=== PATIENT | female | born 1950 | race Caucasian/White ===

== ENCOUNTER 2016-04-23 14:50 | Emergency (ER) | payer MEDICARE ==
[~2016-04-23] VITALS: Ht 165.1 cm; Wt 99.8 kg
[2016-04-23 14:52] VITALS: BP 154/94; PULSE 74; RESP 16; TEMP 98.5; O2SAT 96
--- NOTE | 2016-04-23 14:52 | NUR ---
Patient triaged and placed in waiting room. VSS and patient appears in no acute distress at this time. Accompanied by daughter, awaiting available bed, and MD notified of need for MSE.
[2016-04-23] MEDS ORDERED: PIOG45TA PO (15:31)
[2016-04-23] MEDS ORDERED: PHEN-726 PO (15:31)
[2016-04-23] MEDS ORDERED: IBUP-1480 PO (15:31)
[2016-04-23] MEDS ORDERED: CEPH250C PO (15:31)
[2016-04-23] MEDS ORDERED: METF1000 PO (15:31)
[2016-04-23] MEDS ORDERED: CARV25TA55 PO (15:31)
--- NOTE | 2016-04-23 15:31 | NUR ---
Medication reconciliation completed with information provided by - pill bottles from patient. Any prior medication reconciliation on file was reviewed and corrected.
--- NOTE | 2016-04-23 15:34 | NUR ---
Toñito thompsonscarlet in [facility] - 04/23/16 at [email or web address] Vitale at bedside examining patient
--- NOTE | 2016-04-23 15:34 | NUR ---
Note donnascarlet in EDM - 04/23/16 at 1651 by [email or web address] Pt brought by self, A&Ox4, pt c/o RUQ pain 8/10 with nausea and diarrhea, no vomiting, chills, skin pink and warm, cap refill <3, VSS, radial pulses equal and strong.
--- NOTE | 2016-04-23 15:35 | NUR ---
Patient to ER bed 8 to gown for evaluation. Side rails up. Report given to Kaelyn INGRAM.
--- NOTE | 2016-04-23 15:40 | NUR ---
Pt brought by self, A&Ox4, pt c/o RUQ pain 8/10 with nausea and diarrhea, no vomiting, chills, skin pink and warm, cap refill <3, VSS, radial pulses equal and strong.
--- NOTE | 2016-04-23 15:40 | NUR ---
Dr Vitale at bedside examining patient
[2016-04-23 15:48] LABS: BILIRUBIN,URINE NEGATIVE (NEGATIVE); BLOOD, URINE NEGATIVE (NEGATIVE); CLARITY/URINE CLEAR (CLEAR); COLOR,URINE YELLOW (YELLOW); GLUCOSE,URINE NEGATIVE (NEGATIVE); KETONES,URINE NEGATIVE (NEGATIVE); LEUKOCYTE ESTERASE ,URINE NEGATIVE (NEGATIVE); NITRITE, URINE NEGATIVE (NEGATIVE); PH,URINE 6.5 (5.0-8.0); PROTEIN URINE NEGATIVE (NEGATIVE); UROBILINOGEN,URINE 0.2 (0.2-1.0)
[2016-04-23 16:02] LABS: HEMATOCRIT 34.9 % (36-48); HEMOGLOBIN 11.6 g/dL (12.0-16.0); MEAN CORPUSCULAR HEMOGLOBIN 29 pg (27-31); MEAN CORPUSCULAR HGB CONC 33 % (32-36); MEAN CORPUSCULAR VOLUME 88 fL (79.0-98.0); PLATELET COUNT (AUTO) 272 K/uL (130-430); RED BLOOD CELL COUNT(AUTO) 3.96 MIL/uL (4.2-6.2); RED CELL DISTRIBUTION WIDTH 13.9 % (9.0-15.0); WHITE BLOOD COUNT (AUTO) 7.4 K/uL (4.8-10.8)
[2016-04-23 16:14] LABS: CALCIUM 8.8 mg/dL (8.4-11.0); CREATININE 0.53 mg/dL (0.55-1.30); POTASSIUM 3.1 mmol/L (3.5-5.1)
[2016-04-23 16:19] LABS: TOTAL BILIRUBIN 0.7 mg/dL (0.0-1.0); TOTAL PROTEIN, SERUM 8.1 g/dL (6.4-8.3)
[2016-04-23] MEDS ORDERED: POTASSIUM CHLORIDE 20 MEQ TAB.PRT.SR PO ONE (17:00)
[2016-04-23] MEDS ORDERED: MAG HYDROX/AL HYDROX/SIMETH 30 ML, BELLADONNA ALKALOIDS/PHENOBARB 10 ML, LIDOCAINE VISC... PO ONE ×3 (17:00)
[2016-04-23 17:12] LABS: ATYPICAL LYMPHOCYTES % 0 % (0-0); BAND % (MANUAL) 0 % (0-6); BASOPHILS % (MANUAL) 0 % (0-2); EOSINOPHILS % (MANUAL) 8 % (0-7); LYMPHOCYTES % (MANUAL) 34 % (20-46); MONOCYTES % (MANUAL) 9 % (0-11)
--- NOTE | 2016-04-23 17:28 | NUR ---
Patient given written and verbal discharge instructions and verbalizes understanding. ER MD discussed with patient the results and treatment provided. Given copies of tests performed in ER. Patient in stable condition. ID arm band removed. Rx of Zofran and [place] given. Patient educated on pain management and to follow up with PMD. Pain Scale 0/10. Opportunity for questions provided and answered.
[2016-04-23 17:29] VITALS: BP 154/94; PULSE 74; RESP 16; TEMP 98.5; O2SAT 96
== END 2016-04-23 17:29 | disposition home or self-care (01) ==
LOC: SED 14:50
DX: R10.11 Right upper quadrant pain (principal); R11.0 Nausea; R19.7 Diarrhea, unspecified
CPT/HCPCS: 36415; 74176; 80053; 81003; 83690; 85007; 85027; 99285; J2001

== ENCOUNTER 2023-01-25 11:20 | Emergency (ER) | payer MEDICAID, MEDICARE ==
[~2023-01-25] VITALS: Ht 177.8 cm; Wt 97.5 kg
[~2023-01-25 11:20] MED LIST: CARV25TA55 PO; CEPH250C PO; IBUP-1971 PO; METF1000 PO; PHEN-726 PO; PIOG45TA PO
[2023-01-25 11:27] VITALS: BP_SYST 175; PULSE 64; RESP 18; TEMP 98.3; O2SAT 98
[2023-01-25] MEDS ORDERED: predniSONE 20 MG TABLET PO ONE (13:00)
[2023-01-25] MEDS ORDERED: MORPHINE 4 MG INJ. 4 MG/ML VIAL IM ONE (13:00)
[2023-01-25] MEDS ORDERED: ONDANSETRON 4 MG ODT TAB PO ONE (13:00)
[2023-01-25] MEDS ORDERED: ACYCLOVIR 400 MG TABLET PO ONE (13:00)
[2023-01-25] MEDS ORDERED: HYDR-3917 PO (13:34)
[2023-01-25] MEDS ORDERED: ACYC-133 PO (13:34)
[2023-01-25] MEDS ORDERED: PRED20TA PO (13:34)
[2023-01-25] MEDS ORDERED: NEU300 PO (13:34)
[2023-01-25] MEDS ORDERED: LIDOINT TP (13:34)
[2023-01-25 13:51] VITALS: BP_SYST 156; PULSE 69; RESP 20; TEMP 98.1; O2SAT 96
== END 2023-01-25 13:50 | disposition home or self-care (01) ==
LOC: SED 11:20
DX: B02.8 Zoster with other complications (principal); I10 Essential (primary) hypertension; E11.9 Type 2 diabetes mellitus without complications; Z79.899 Other long term (current) drug therapy
CPT/HCPCS: 99284; 96372; Q0162; J7512; J2270